=== PATIENT | female | born 1985 | race Caucasian/White ===

== ENCOUNTER 2017-01-12 09:23 | Emergency (ER) | payer OTHER ==
[~2017-01-12] VITALS: Ht 157.5 cm; Wt 95.0 kg
[~2017-01-12 09:23] MED LIST: MMW SWISH-SPIT
[2017-01-12 09:25] VITALS: BP 130/78; PULSE 76; RESP 20; TEMP 98.7; O2SAT 99
[2017-01-12 09:56] VITALS: BP 139/76; PULSE 64; RESP 19; TEMP 97.9; O2SAT 98
--- NOTE | 2017-01-12 09:57 | PD ---
HPI Chief Complaint: Abdominal Pain Time Seen by Provider: 09:50 Travel History International Travel<30 days: No Contact w/Intl Traveler<30days: No Traveled to known affect area: No History of Present Illness HPI This is a 31-year-old female was diagnosed with hepatitis C when she was 14 presents to the emergency department with 3 days of intermittent right upper quadrant pain that hurts worse in the mornings when she wakes up, stabbing, sharp, feeling like a burning all over her abdomen. She denies any fevers or chills. She did vomit several times this morning. She denies any constipation or diarrhea. She denies any dysuria or vaginal discharge. She has had a tubal ligation in the past. [facility] Past Medical History Asthma: Yes Autoimmune Disease: No Bipolar Disorder: Yes Anxiety: Yes Depression: Yes Cardiovascular Problems: No COPD: Yes Diabetes: No Diminished Hearing: No Endocrine: No Gastrointestinal Disorders: Yes Genitourinary: No Hepatitis: Yes (C) Immune Disorder: No Musculoskeletal: Yes Neurologic: Yes ( ) Psychiatric: Yes ( ) Reproductive: Yes ( ) Respiratory: Yes (COPD ) Integumentary: Yes ( ) Migraines: Yes ?: Not LMP: 01/01/2017 : 3 Para: 3 Miscarriage: 1 Tubal Ligation: Yes Past Surgical History Abdominal Surgery: No Cardiac Surgery: No Gynecologic Surgery: Yes ( ) Neurologic Surgery: No Thoracic Surgery: No Other Surgery: Yes Social History Alcohol Use: No (denies) Tobacco Use: No Substance Use: Yes (marijuana) Allergies-Medications (Allergen,Severity, Reaction): Coded Allergies: *MDRO Multi-Drug Resistant Organism (Verified Allergy, Unknown, 01/12/17) MRSA Surveillance screen + in 2009 Reported Meds & Prescriptions Reported Meds & Active Scripts Active No Active Prescriptions or Reported Medications Review of Systems Except as stated in HPI: all other systems reviewed are Neg Physical Exam Narrative GENERAL:Well appearing, no acute distress SKIN: Focused skin assessment warm and dry. HEAD: Atraumatic. Normocephalic. EYES: Pupils equal and round. No injection or drainage. ENT: Moist mucous membranes NECK: Trachea midline. CARDIOVASCULAR: Regular rate and rhythm. No murmur appreciated. RESPIRATORY: Clear to auscultation. Breath sounds equal bilaterally. GASTROINTESTINAL: Abdomen soft, non-tender, nondistended. MUSCULOSKELETAL: No obvious deformities. NEUROLOGICAL: Awake and alert. No obvious cranial nerve deficits. Moving all extremities. PSYCHIATRIC: Appropriate mood and affect; insight and judgment normal. Data Data Last Documented VS Vital Signs Date Time Temp Pulse Resp B/P Pulse Ox O2 Delivery O2 Flow Rate FiO2 01/12/17 09:58 97.9 64 19 139/76 98 Room Air Orders Complete Blood Count With Diff (01/12/17 09:56) Comprehensive Metabolic Panel (01/12/17 09:56) Lipase (01/12/17 09:56) Urinalysis - C+S If Indicated (01/12/17 09:56) Iv Access Insert/Monitor (01/12/17 09:56) Ecg Monitoring (01/12/17 09:56) Oximetry (01/12/17 09:56) Sodium Chloride 0.9% Flush (Ns Flush) (01/12/17 10:00) Us Abdomen Gallbladder (01/12/17 ) Labs Laboratory Tests Test 01/12/17 01/12/17 10:03 10:05 White Blood Count 9.4 TH/MM3 Red Blood Count 4.84 MIL/MM3 Hemoglobin 15.3 GM/DL Hematocrit 43.6 % Mean Corpuscular Volume 90.1 FL Mean Corpuscular Hemoglobin 31.6 PG Mean Corpuscular Hemoglobin 35.1 % Concent Red Cell Distribution Width 13.8 % Platelet Count 233 TH/MM3 Mean Platelet Volume 8.9 FL Neutrophils (%) (Auto) 65.1 % Lymphocytes (%) (Auto) 25.4 % Monocytes (%) (Auto) 6.8 % Eosinophils (%) (Auto) 1.9 % Basophils (%) (Auto) 0.8 % Neutrophils # (Auto) 6.1 TH/MM3 Lymphocytes # (Auto) 2.4 TH/MM3 Monocytes # (Auto) 0.6 TH/MM3 Eosinophils # (Auto) 0.2 TH/MM3 Basophils # (Auto) 0.1 TH/MM3 CBC Comment DIFF FINAL Differential Comment Sodium Level 140 MEQ/L Potassium Level 4.2 MEQ/L Chloride Level 110 MEQ/L Carbon Dioxide Level 24.0 MEQ/L Anion Gap 6 MEQ/L Blood Urea Nitrogen 9 MG/DL Creatinine 0.72 MG/DL Estimat Glomerular Filtration 96 ML/MIN Rate Random Glucose 94 MG/DL Calcium Level 9.2 MG/DL Total Bilirubin 0.3 MG/DL Aspartate Amino Transf 12 U/L (AST/SGOT) Alanine Aminotransferase 23 U/L (ALT/SGPT) Alkaline Phosphatase 101 U/L Total Protein 7.1 GM/DL Albumin 3.9 GM/DL Lipase 96 U/L Urine Color YELLOW Urine Turbidity HAZY Urine pH 5.5 Urine Specific [place] 1.033 Urine Protein 30 mg/dL Urine Glucose (UA) NEG mg/dL Urine Ketones NEG mg/dL Urine Occult Blood NEG Urine Nitrite NEG Urine Bilirubin NEG Urine Urobilinogen 2.0 MG/DL Urine Leukocyte Esterase NEG Urine WBC LESS THAN 1 /hpf Urine Squamous Epithelial 39 /hpf Cells Urine Calcium Oxalate Crystals MOD /hpf Urine Bacteria OCC /hpf Urine Mucus MANY /lpf Microscopic Urinalysis Comment CULT NOT INDICATED MDM Medical Decision Making Medical Screen Exam Complete: Yes Emergency Medical Condition: Yes Interpretation(s) Afebrile, no tachycardia, normotensive No leukocytosis Electrolytes are reassuring Lipase is normal Urinalysis is negative for infection, shows some calcium oxalate crystals and some bacteria but no obvious infection Last 24 hours Impressions Gall Bladder Ultrasound 01/12/17 0000 Signed Impressions: Service Date/Time: Saturday, January 12, 2017 10:06 - CONCLUSION: 1. Unremarkable gallbladder with no evidence of cholelithiasis. 2. Mildly prominent liver with findings most characteristic of fatty infiltration. Perry Oliveira MD Differential Diagnosis Cholelithiasis, cholecystitis, acute hepatitis, pancreatitis Narrative Course This is a 31-year-old female who presents to the emergency department with right upper quadrant abdominal pain. She thinks it's her hepatitis C. She says she hasn't seen a doctor for this in a while and she feels like it's getting [id number]. She denies any fevers or chills. She had several episodes of vomiting this morning. She's had a tubal ligation in the past. Labs are reassuring. Urinalysis is negative for infection. Right upper quadrant ultrasound was negative for stones or etiology of the patient's symptoms. She is currently pain-free. I think she can be discharged home and follow-up with her primary care physician. Diagnosis Primary Impression: Abdominal pain Qualified Code: R10.11 - Right upper quadrant abdominal pain Patient Instructions: General Instructions Additional Instructions: If you develop severe or worsening abdominal pain, fever>100.4, persistent vomiting or inability to eat or drink return to the emergency department immediately. Follow up with your primary care physician in 1-2 days for a check-up. Med/Other Pt SpecificInfo: No Change to Meds Scripts No Active Prescriptions or Reported Meds Disposition: 01 DISCHARGE HOME Condition: Stable Jamee Land MD Jan 12, 2017 09:57
[2017-01-12 09:58] VITALS: BP 139/76; PULSE 64; RESP 19; TEMP 97.9; O2SAT 98
[2017-01-12] MEDS ORDERED: SODIUM CHLORIDE 0.9% FLUSH 10 ML FLUSH IV FLUSH PRN (10:00)
[2017-01-12 10:17] LABS: AUTOMATED NEUTROPHIL # 6.1 TH/MM3 (1.8-7.7); BASOPHIL # 0.1 TH/MM3 (0-0.2); BASOPHIL % 0.8 % (0.0-2.0); EOSINOPHIL # 0.2 TH/MM3 (0-0.4); EOSINOPHIL % 1.9 % (0.0-4.0); HEMATOCRIT 43.6 % (35.0-46.0); HEMO FLAGS DIFF FINAL; LYMPH % 25.4 % (9.0-44.0); LYMPHOCYTE # 2.4 TH/MM3 (1.0-4.8); MEAN CELL VOLUME 90.1 FL (80.0-100.0); MEAN CORPUSCULAR HEMOGLOBIN 31.6 PG (27.0-34.0); MEAN CORPUSCULAR HGB CONC 35.1 % (32.0-36.0); MONO % 6.8 % (0.0-8.0); NEUT % 65.1 % (16.0-70.0); PLATELET COUNT 233 TH/MM3 (150-450); RED BLOOD COUNT 4.84 MIL/MM3 (4.00-5.30); RED CELL DISTRIBUTION WIDTH 13.8 % (11.6-17.2); WHITE BLOOD COUNT 9.4 TH/MM3 (4.0-11.0)
[2017-01-12 10:34] LABS: BACTERIA, URINE OCC /hpf; BLOOD, URINE NEG (NEG); CALCIUM OXALATE CRYSTALS,URINE MOD /hpf; COMMENT (UR) CULT NOT INDICATED; CULTURE IF INDICATED CULT NOT INDICATED; GLUCOSE,URINE NEG (NEG); KETONE, URINE NEG (NEG); MUCUS URINE MANY /lpf (OCC); NITRITE,URINE NEG (NEG); PH, URINE 5.5 (5.0-8.5); SQUAMOUS EPITHELIAL CELL URINE 39 /hpf (0-5); URINE COLOR YELLOW (YELLW/STRAW)
[2017-01-12 10:37] LABS: ALT (GPT) 23 U/L (10-53); ANION GAP 6 MEQ/L (5-15); AST (GOT) 12 U/L (15-37); BLOOD UREA NITROGEN 9 MG/DL (7-18); CHLORIDE 110 MEQ/L (98-107); GLOMERULAR FILTRATION RATE 96 ML/MIN (>89); POTASSIUM 4.2 MEQ/L (3.5-5.1); SODIUM (NA) 140 MEQ/L (136-145)
[2017-01-12 10:39] LABS: ALKALINE PHOSPHATASE 101 U/L (45-117); TOTAL BILIRUBIN ADULT 0.3 MG/DL (0.2-1.0)
--- NOTE | 2017-01-12 10:56 | RADRPT ---
EXAM DATE/TIME: 01/12/2017 10:06 [facility] COMPARISON: No previous studies available for comparison. INDICATIONS : Right upper quadrant pain. MEDICAL HISTORY : Chronic obstructive pulmonary disease. Asthma. Hepatitis C. Gastrointestinal disorders. Depress ion. Anxiety. Substance use. Bipolar disorder. SURGICAL HISTORY : Tubal ligation. ENCOUNTER: Initial ACUITY: 1 day PAIN SCORE: 7/10 LOCATION: Right upper quadrant MEASUREMENTS: LIVER: 18.4 cm length COMMON DUCT: 2 mm RIGHT KIDNEY: 11.2 x 5.2 x 4.6 cm FINDINGS: LIVER: The liver is mildly prominent with increased echogenicity and no focal lesion. There is no ductal dil atation or ascites. COMMON DUCT: No intraluminal mass or stone visualized. GALLBLADDER: Contains no stones, demonstrates no wall thickening or pericholecystic fluid. PANCREAS: The visualized portions are within normal limits. RIGHT KIDNEY: No evidence of hydronephrosis, stone, or mass. CONCLUSION: 1. Unremarkable gallbladder with no evidence of cholelithiasis. 2. Mildly prominent liver with findings most characteristic of fatty infiltration. Perry Oliveira MD on January 12, 2017 at 10:54 Board Certified Radiologist. This report was verified electronically.
[2017-01-12 11:29] VITALS: BP 132/67
== END 2017-01-12 11:30 | disposition home or self-care (01) ==
LOC: NEPD 09:23
DX: R10.11 Right upper quadrant pain (principal); R11.10 Vomiting, unspecified; B19.20 Unspecified viral hepatitis C without hepatic coma; K76.0 Fatty (change of) liver, not elsewhere classified; F31.9 Bipolar disorder, unspecified; J44.9 Chronic obstructive pulmonary disease, unspecified; F41.9 Anxiety disorder, unspecified
CPT/HCPCS: 76705; 80053; 81001; 83690; 85025; 99284

== ENCOUNTER 2017-02-13 14:03 | Emergency (ER) | payer OTHER ==
[~2017-02-13] VITALS: Ht 157.5 cm; Wt 90.0 kg
[2017-02-13 14:05] VITALS: BP 135/66; PULSE 88; RESP 20; TEMP 98.9; O2SAT 98
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
== END 2017-02-13 14:27 | disposition home or self-care (01) ==
LOC: EDTENT 14:03
DX: S93.401A Sprain of unspecified ligament of right ankle, initial encounter (principal); X50.1XXA Overexertion from prolonged static or awkward postures, initial encounter; X37.0XXA Hurricane, initial encounter
CPT/HCPCS: 99282; E0113

== ENCOUNTER 2017-10-30 14:35 | Emergency (ER) | payer OTHER ==
[2017-10-30 14:47] VITALS: BP 160/104; PULSE 71; RESP 17; TEMP 99; O2SAT 100
[2017-10-30] MEDS ORDERED: SODIUM CHLORIDE 0.9% FLUSH 10 ML FLUSH IVF PRN (15:15)
--- NOTE | 2017-10-30 15:19 | PD ---
HPI Chief Complaint: Syncope/Near-Syncope Time Seen by Provider: 15:06 Travel History International Travel<30 days: No Contact w/Intl Traveler<30days: No Traveled to known affect area: No History of Present Illness HPI The patient was seen and examined in the presence of the nurse. This patient reports that she had a syncopal episode yesterday. She says she had another one this morning. She says both time she fell and struck the left side of her forehead. She does complain of moderate severity headache. No neck symptoms. She is lightheaded now. No vertigo symptoms. No medications. Symptoms have a duration of 1 day. No exacerbating factors. No alleviating factors. PFSH Past Medical History Asthma: Yes Autoimmune Disease: No Bipolar Disorder: Yes Anxiety: Yes Depression: Yes Cardiovascular Problems: No COPD: Yes Diabetes: No Diminished Hearing: No Endocrine: No Gastrointestinal Disorders: Yes Genitourinary: No Hepatitis: Yes (C) Immune Disorder: No Musculoskeletal: Yes Respiratory: Yes (COPD ) Migraines: Yes ?: Not LMP: 10/21/17 : 3 Para: 3 Miscarriage: 1 Tubal Ligation: Yes Past Surgical History Abdominal Surgery: No Cardiac Surgery: No Neurologic Surgery: No Thoracic Surgery: No Other Surgery: Yes Social History Alcohol Use: No Tobacco Use: No Substance Use: Yes (marijuana) Allergies-Medications (Allergen,Severity, Reaction): Coded Allergies: *MDRO Multi-Drug Resistant Organism (Verified Allergy, Unknown, 10/30/17) MRSA Surveillance screen + in 2009 Reported Meds & Prescriptions Reported Meds & Active Scripts Active No Active Prescriptions or Reported Medications Review of Systems General / Constitutional: No: Fever Eyes: No: Visual changes HENT: Positive: Headaches, Lightheadedness Cardiovascular: Positive: Syncope, No: Chest Pain or Discomfort Respiratory: No: Shortness of Breath Gastrointestinal: No: Abdominal Pain Genitourinary: No: Dysuria Musculoskeletal: No: Pain Skin: No Rash Neurologic: Positive: Dizziness, Headache, No: Weakness Psychiatric: No: Depression Endocrine: No: Polydipsia Hematologic/Lymphatic: No: Easy Bruising Physical Exam Narrative GENERAL: Well-nourished, well-developed patient in no apparent distress. SKIN: Focused skin assessment reveals no rash and nodules. Skin is Warm and dry. HEAD: Atraumatic. Normocephalic. EYES: Pupils equal and round. No scleral icterus. No injection or drainage. ENT: No nasal bleeding or discharge. Mucous membranes pink and moist. NECK: Trachea midline. No JVD. No midline tenderness CARDIOVASCULAR: Regular rate and rhythm. No murmur appreciated. RESPIRATORY: No accessory muscle use. Clear to auscultation. Breath sounds equal bilaterally. GASTROINTESTINAL: Abdomen soft, non-tender, nondistended. Hepatic and splenic margins not palpable. MUSCULOSKELETAL: No obvious deformities. No clubbing. No cyanosis. No edema. NEUROLOGICAL: Awake and alert. No obvious cranial nerve deficits. Motor grossly within normal limits. Normal speech. PSYCHIATRIC: Appropriate mood and affect; insight and judgment normal. Data Data Last Documented VS Vital Signs Date Time Temp Pulse Resp B/P (MAP) Pulse Ox O2 Delivery O2 Flow Rate FiO2 10/30/17 15:30 Room Air 10/30/17 14:47 99.0 71 17 160/104 (122) 100 Orders Orders Electrocardiogram (10/30/17 14:52) Electrocardiogram (10/30/17 15:13) Basic Metabolic Panel (Bmp) (10/30/17 15:13) Complete Blood Count With Diff (10/30/17 15:13) Ct Brain W/O Iv Contrast(Rout) (10/30/17 15:13) Ecg Monitoring (10/30/17 15:13) Iv Access Insert/Monitor (10/30/17 15:13) Sodium Chloride 0.9% Flush (Ns Flush) (10/30/17 15:15) Ed Urine Pregnancytest Poc (10/30/17 15:13) Labs Laboratory Tests Test 10/30/17 15:25 White Blood Count 8.6 TH/MM3 Red Blood Count 4.92 MIL/MM3 Hemoglobin 15.2 GM/DL Hematocrit 43.9 % Mean Corpuscular Volume 89.2 FL Mean Corpuscular Hemoglobin 30.9 PG Mean Corpuscular Hemoglobin Concent 34.6 % Red Cell Distribution Width 13.4 % Platelet Count 278 TH/MM3 Mean Platelet Volume 8.6 FL Neutrophils (%) (Auto) 53.5 % Lymphocytes (%) (Auto) 38.9 % Monocytes (%) (Auto) 6.0 % Eosinophils (%) (Auto) 1.1 % Basophils (%) (Auto) 0.5 % Neutrophils # (Auto) 4.6 TH/MM3 Lymphocytes # (Auto) 3.3 TH/MM3 Monocytes # (Auto) 0.5 TH/MM3 Eosinophils # (Auto) 0.1 TH/MM3 Basophils # (Auto) 0.0 TH/MM3 CBC Comment DIFF FINAL Differential Comment Blood Urea Nitrogen 13 MG/DL Creatinine 0.74 MG/DL Random Glucose 91 MG/DL Calcium Level 9.7 MG/DL Sodium Level 142 MEQ/L Potassium Level 4.0 MEQ/L Chloride Level 109 MEQ/L Carbon Dioxide Level 22.6 MEQ/L Anion Gap 10 MEQ/L Estimat Glomerular Filtration Rate 92 ML/MIN MDM Medical Decision Making Medical Screen Exam Complete: Yes Emergency Medical Condition: Yes Medical Record Reviewed: Yes Differential Diagnosis Intracranial hemorrhage, cardiac arrhythmia, concussion Narrative Course I have reviewed the patient's electronic medical record. IV placed and labs sent Patient is neurologically intact. No objective findings on exam. I reviewed her EKG which shows sinus rhythm without ectopy Extended cardiac monitoring shows sinus rhythm without ectopy Patient's labs are normal. She looks clinically well. I am awaiting CT scan. If negative she should be stable for outpatient follow- up. Diagnosis Primary Impression: Syncope Qualified Codes: R55 - Syncope and collapse Additional Impressions: Lightheadedness Head injury Qualified Codes: S09.90XA - Unspecified injury of head, initial encounter Scripts No Active Prescriptions or Reported Meds David Flynn MD October 30, 2017 15:19
[2017-10-30 15:43] LABS: AUTOMATED NEUTROPHIL # 4.6 TH/MM3 (1.8-7.7); BASOPHIL % 0.5 % (0.0-2.0); EOSINOPHIL # 0.1 TH/MM3 (0-0.4); EOSINOPHIL % 1.1 % (0.0-4.0); HEMATOCRIT 43.9 % (35.0-46.0); HEMOGLOBIN 15.2 GM/DL (11.6-15.3); LYMPH % 38.9 % (9.0-44.0); LYMPHOCYTE # 3.3 TH/MM3 (1.0-4.8); MEAN CELL VOLUME 89.2 FL (80.0-100.0); MEAN CORPUSCULAR HEMOGLOBIN 30.9 PG (27.0-34.0); MEAN CORPUSCULAR HGB CONC 34.6 % (32.0-36.0); MEAN PLATELET VOLUME 8.6 FL (7.0-11.0); MONOCYTE # 0.5 TH/MM3 (0-0.9); NEUT % 53.5 % (16.0-70.0); PLATELET COUNT 278 TH/MM3 (150-450); RED BLOOD COUNT 4.92 MIL/MM3 (4.00-5.30); RED CELL DISTRIBUTION WIDTH 13.4 % (11.6-17.2); WHITE BLOOD COUNT 8.6 TH/MM3 (4.0-11.0)
[2017-10-30 16:10] LABS: BICARBONATE 22.6 MEQ/L (21.0-32.0); CALCIUM 9.7 MG/DL (8.5-10.1); CREATININE 0.74 MG/DL (0.50-1.00)
--- NOTE | 2017-10-30 17:04 | PD ---
Physical Exam Narrative Received sign out from previous team to follow up CT scan brain and if negative , can follow up as outpatient. 32yo F with left sided headache after falling and hitting her head today at around 12pm. Said she was walking to bathroom when she felt lightheaded and passed out. Also had another episode yesterday. No focal neurologic deficits on exam. No hematoma or bleeding in head. Labs reviewed, no leukocytosis. H/ H normal. BMP unremarkable. Urine negative. EKG reviewed by previous team. Pt's headache is worse with bright lights and sounds migraine like. Will give reglan and acetaminophen for now. Pt reevaluated at bedside and headache improved but still there. CT brain showed no acute intracranial abnormality. Pt given toradol and headache has resolved. Pt wants to go home and ambulating in the ED without any symptoms. Data Data Last Documented VS Vital Signs Date Time Temp Pulse Resp B/P (MAP) Pulse Ox O2 Delivery O2 Flow Rate FiO2 10/30/17 18:57 69 17 130/78 (95) 100 Room Air 10/30/17 14:47 99.0 Orders Orders Electrocardiogram (10/30/17 14:52) Basic Metabolic Panel (Bmp) (10/30/17 15:13) Complete Blood Count With Diff (10/30/17 15:13) Ct Brain W/O Iv Contrast(Rout) (10/30/17 15:13) Ecg Monitoring (10/30/17 15:13) Iv Access Insert/Monitor (10/30/17 15:13) Sodium Chloride 0.9% Flush (Ns Flush) (10/30/17 15:15) Ed Urine Pregnancytest Poc (10/30/17 15:13) Metoclopramide Inj (Reglan Inj) (10/30/17 17:15) Acetaminophen (Tylenol) (10/30/17 17:15) Ketorolac Inj (Toradol Inj) (10/30/17 18:15) Labs Laboratory Tests Test 10/30/17 15:25 White Blood Count 8.6 TH/MM3 Red Blood Count 4.92 MIL/MM3 Hemoglobin 15.2 GM/DL Hematocrit 43.9 % Mean Corpuscular Volume 89.2 FL Mean Corpuscular Hemoglobin 30.9 PG Mean Corpuscular Hemoglobin Concent 34.6 % Red Cell Distribution Width 13.4 % Platelet Count 278 TH/MM3 Mean Platelet Volume 8.6 FL Neutrophils (%) (Auto) 53.5 % Lymphocytes (%) (Auto) 38.9 % Monocytes (%) (Auto) 6.0 % Eosinophils (%) (Auto) 1.1 % Basophils (%) (Auto) 0.5 % Neutrophils # (Auto) 4.6 TH/MM3 Lymphocytes # (Auto) 3.3 TH/MM3 Monocytes # (Auto) 0.5 TH/MM3 Eosinophils # (Auto) 0.1 TH/MM3 Basophils # (Auto) 0.0 TH/MM3 CBC Comment DIFF FINAL Differential Comment Blood Urea Nitrogen 13 MG/DL Creatinine 0.74 MG/DL Random Glucose 91 MG/DL Calcium Level 9.7 MG/DL Sodium Level 142 MEQ/L Potassium Level 4.0 MEQ/L Chloride Level 109 MEQ/L Carbon Dioxide Level 22.6 MEQ/L Anion Gap 10 MEQ/L Estimat Glomerular Filtration Rate 92 ML/MIN MDM Supervised Visit with CE: No Diagnosis Primary Impression: Syncope Qualified Codes: R55 - Syncope and collapse Additional Impressions: Lightheadedness Head injury Qualified Codes: S09.90XA - Unspecified injury of head, initial encounter Patient Instructions: General Instructions Departure Forms: Tests/Procedures Additional Instruction: Please follow up with your primary care physician in 2-3 days. Return to the ED if symptoms worsen. Med/Other Pt SpecificInfo: Prescription(s) given Scripts Acetaminophen (Tylenol) 325 Mg Tab 650 MG PO Q6H Y for PAIN SCALE 1 TO 4, #20 TAB 0 Refills Prov: Rin Vazquez DO 10/30/17 Disposition: 01 DISCHARGE HOME Condition: Stable Rin Vazquez DO October 30, 2017 17:04
[2017-10-30 17:06] VITALS: BP 126/91; PULSE 69; RESP 21; O2SAT 100
[2017-10-30] MEDS ORDERED: METOCLOPRAMIDE INJ 10 MG in SODIUM CHLORIDE 0.9% INJ 50 ML IV ONE (17:15)
[2017-10-30] MEDS ORDERED: ACETAMINOPHEN 325 MG TAB PO ONE (17:15)
--- NOTE | 2017-10-30 17:59 | RADRPT ---
EXAM DATE: 10/30/2017 5:56 PM EDT AGE/SEX: 32 years / Female INDICATIONS: Syncope, hit head. CLINICAL DATA: This is the patient's initial encounter. Patient reports that signs and symptoms have been present for 1 day and indicates a pain score of 0/10. MEDICAL/SURGICAL HISTORY: Chronic obstructive pulmonary disease. Asthma. Hepatitis C. Tubal ligat ion. RADIATION DOSE: 56.35 CTDI (mGy) COMPARISON: . TECHNIQUE: CT of the head without contrast. Using automated exposure control and adjustment of the mA and/or kV according to patient size, radiation dose was kept as low as reasonably achievable to ob tain optimal diagnostic quality images. FINDINGS: Cerebrum: The ventricles are normal for age. No evidence of midline shift, mass lesion, hemorrhage o r acute infarction. No extraaxial fluid collections are seen. Posterior Fossa: The cerebellum and brainstem are intact. The 4th ventricle is midline. The cerebe llopontine angle is unremarkable. Extracranial: The visualized portion of the orbits is intact. Skull: The calvaria is intact. No evidence of skull fracture. CONCLUSION: 1. No acute intracranial abnormality. Electronically signed by: Ramos Patel MD 10/30/2017 5:58 PM EDT
[2017-10-30] MEDS ORDERED: KETOROLAC TROMETHAMINE 30 MG/ML (IVP) VIAL IV PUSH ONE (18:15)
[2017-10-30 18:57] VITALS: BP 130/78; PULSE 69; RESP 17; O2SAT 100
[2017-10-30] MEDS ORDERED: TYLE325T PO (19:38)
--- NOTE | 2017-10-31 14:39 | EKG ---
Date Performed: 10/30/2017 Time Performed: 14:55:15 PTAGE: 32 years EKG: Sinus rhythm NONSPECIFIC T-WAVE ABNORMALITY BORDERLINE ECG INTERPRETATION BASED ON A DEFAULT AGE OF 40 YEARS NO PREVIOUS TRACING DOCTOR: Eliel Shahid Interpretating Date/Time 10/31/2017 14:38:24
== END 2017-10-30 19:59 | disposition home or self-care (01) ==
LOC: NEPD 14:35
DX: R55 Syncope and collapse (principal); S09.90XA Unspecified injury of head, initial encounter; F12.90 Cannabis use, unspecified, uncomplicated; W19.XXXA Unspecified fall, initial encounter
CPT/HCPCS: 70450; 80048; 84703; 85025; 93005; 96365; 96375; 99285; J1885; J2765